=== PATIENT | female | born 2000 | race African-American/Black ===

== ENCOUNTER 2021-06-15 13:40 | Emergency (ER) | payer SELFPAY ==
[2021-06-15 14:25] VITALS: BMI 27.4
[2021-06-15] MEDS ORDERED: ACETAMINOPHEN 325 MG TABLET (FP) PO ONE (17:04)
[2021-06-15] MEDS ORDERED: ACETAMINOPHEN 500 MG TABLET (FP) PO ONE (17:08)
[2021-06-15] MEDS ORDERED: ACETAMINOPHEN 325 MG TABLET (FP) ONE (17:29)
[2021-06-15 17:54] LABS: BASO % 0.7 % (0-2.0); EOS % 3.9 % (0-4.5); HEMOGLOBIN 11.6 GM/dL (10.7-15.3); LYMPH % 32.2 % (8-40); MCH 21.6 pg (25.7-33.7); MCHC 32.4 g/dl (32.0-36.0); MEAN CELL VOLUME 66.8 fl (80-96); MEAN PLT VOLUME 7.5 fl (7.5-11.1); MONO % 9.1 % (3.8-10.2); NEUT % 54.1 % (42.8-82.8); PLATELET COUNT 376 10^3/uL (134-434); RBC 5.38 M/mm3 (3.60-5.2); RDW 15.9 % (11.6-15.6); WHITE BLOOD COUNT 7.4 K/mm3 (4.0-10.0)
[2021-06-15 18:07] LABS: INR 1.1 (0.83-1.09); PROTHROMBIN TIME (PATIENT) 13.3 SEC (9.7-13.0)
[2021-06-15 18:12] LABS: CALCIUM 8.7 mg/dL (8.5-10.1)
[2021-06-15 18:13] LABS: ALBUMIN 3.7 g/dl (3.4-5.0); BLOOD UREA NITROGEN 6.5 mg/dL (7-18)
[2021-06-15 18:16] LABS: CREATININE 0.6 mg/dL (0.55-1.3)
[2021-06-15 18:17] LABS: BILIRUBIN,TOTAL 0.4 mg/dL (0.2-1); TOT PROT 7.5 g/dl (6.4-8.2)
[2021-06-15 18:34] VITALS: BP 110/68; PULSE 72; TEMP 98.6
[2021-06-15 19:53] LABS: ANISOCYTOSIS 0; MACROCYTOSIS 1+; PLATELET ESTIMATE NORMAL
== END 2021-06-15 18:34 | disposition home or self-care (01) ==
LOC: JER 13:40
DX: R07.9 Chest pain, unspecified (principal); R06.02 Shortness of breath
CPT/HCPCS: 36415; 71046-TC-FY; 80053; 84703; 85025; 85379; 85610; 93005; 93010; 99285-25